=== PATIENT | female | born 1995 | race African-American/Black ===

== ENCOUNTER 2020-10-26 15:15 | Emergency (ER) | payer BC ==
[~2020-10-26] VITALS: Ht 180.3 cm; Wt 73.0 kg
[2020-10-26 17:02] LABS: EOSINOPHILS % 0.5 % (0.0-5.0); HEMATOCRIT. 41.5 % (36.0-48.0); HEMOGLOBIN. 14.9 g/dL (12.0-16.0); LYMPHOCYTES % 38.3 % (20.0-50.0); MEAN CORPUSCULAR HEMOGLOBIN 30.4 pg (28.0-32.0); MEAN CORPUSCULAR VOLUME 84.9 fL (81.0-99.0); MONOCYTES % 9.9 % (2.0-8.0); NEUTROPHILS % 50.3 % (40.0-76.0); RED BLOOD CELL COUNT 4.88 mill/uL (4.2-5.4); RED CELL DISTRIBUTION WIDTH 12.8 % (11.6-14.6)
[2020-10-26 17:09] LABS: INR 1.1; PROTHROMBIN TIME 11.3 sec (9.6-11.0)
[2020-10-26 17:11] LABS: CHLORIDE 104 mEq/L (98-107)
[2020-10-26 17:15] LABS: CLARITY URINE CLOUDY (CLEAR); COLOR URINE DARK YELLOW (YELLOW); KETONES URINE TRACE (NEGATIVE); LEUKOCYTE ESTERASE URINE NEGATIVE (NEGATIVE); NITRITE URINE NEGATIVE (NEGATIVE); OCCULT BLOOD URINE NEGATIVE (NEGATIVE); PROTEIN URINE TRACE (NEGATIVE); SPECIFIC GRAVITY URINE 1.027 (1.005-1.030); UROBILINOGEN URINE 0.2 E.U./dL (0.2-1.0)
[2020-10-26 17:22] LABS: HCG SCREEN NEGATIVE
[2020-10-26 17:43] LABS: PLATELET 291 x1000/uL (130-400)
[2020-10-26 17:44] LABS: MEAN PLATELET VOLUME 9.4 fl (7.4-10.4); PLATELET ESTIMATE NORMAL
[2020-10-26] MEDS ORDERED: POTASSIUM CHLORIDE 20MEQ TABLET SR PO ONE (18:00)
[2020-10-26 18:30] VITALS: BP 152/101
== END 2020-10-26 19:15 | disposition home or self-care (01) ==
LOC: ER 15:15
DX: R56.9 Unspecified convulsions (principal); E87.6 Hypokalemia; Z71.89 Other specified counseling; F12.90 Cannabis use, unspecified, uncomplicated
CPT/HCPCS: 36415; 80053; 81003; 84703; 85025; 93005; 99284